=== PATIENT | female | born 1995 | race Caucasian/White ===

== ENCOUNTER 2018-05-26 19:53 | Emergency (ER) | payer OTHER, SELFPAY ==
[2018-05-26 19:54] VITALS: BP 108/85; PULSE 76; RESP 15; TEMP 36.4; O2SAT 100; BMI 24.8
--- NOTE | 2018-05-26 20:20 | RAD_ITS ---
STUDY: X-RAY - RIGHT HAND, ATTENTION THIRD FINGER REASON FOR EXAM: Female, 22 years old. Trauma TECHNIQUE: 3 view(s) of the finger were obtained. COMPARISON: None. FINDINGS: Normal metacarpal head. Normal metacarpophalangeal joint. Normal proximal phalanx. Normal middle phalanx. Normal distal phalanx. Normal proximal interphalangeal joint. Normal distal interphalangeal joint. RAD/Finger(s) Min 2 Views IMPRESSION: Normal x-ray examination of the finger. Electronically Signed: Walter Almeida MD at 20:58 EDT , Service support ,
--- NOTE | 2018-05-26 20:42 | ED.DCSUM_ITS ---
- ER Visit Summary Date of Service: 05/26/18 Chief Complaint: Right long finger injury History of Present Illness: The patient is a 22 F who got her right third finger caught in a press at work. She had acrylic nails on at the time and the acrylic nail on that finger did split. She removed it. Injury occurred 3 hours prior to arrival, and patient reports increasing pain and swelling. Physical Examination: Vital signs unremarkable. Patient sitting upright in bed no acute distress. Right upper extremity examination reveals tenderness of the tuft of the right third finger. There is a very small subungual hematoma. There is no laceration noted. She has normal sensation and cap refill distally. She has full range of motion. Test Results: Right third finger x-rays are obtained and unremarkable. Emergency Department Course and Treatment: Test results are discussed with the patient. She was placed in an AlumaFoam splint. [facility] Treatment Plan: [] Disposition: Discharge Impression: Crush injury right third finger This note was generated with [employer] dictation software. It may contain incorrect words, spelling, and punctuation that were not noted in review of the chart prior to signing ED Disposition - Plan for ED Patient: Chief Complaint: Upper Extremity Injury Referrals: Care Physician,No Primary [Primary Care Provider] -
--- NOTE | 2018-05-26 20:43 | ED.DEP ---
ED Disposition - Plan for ED Patient: Disposition: Home or Assisted Living Chief Complaint: Upper Extremity Injury Instructions: ED Crush Injury Finger No Fx Prescriptions: Naproxen [Naprosyn] 500 mg PO BID PRN PRN #20 tablet PRN Reason: Pain Referrals: Corporate,Care [GROUP OF PHYSICIANS] - 2 Days
[2018-05-26 21:22] VITALS: BP 110/72; PULSE 78; RESP 16; O2SAT 98
[2018-05-26 21:29] VITALS: BP 110/78; PULSE 78; RESP 16; O2SAT 98
== END 2018-05-26 21:33 | disposition home or self-care (01) ==
LOC: ED 20:57
PROVIDERS: Emergency Provider Emergency Medicine
DX: S67.192A Crushing injury of right middle finger, initial encounter (principal); W31.1XXA Contact with metalworking machines, initial encounter; Y93.9 Activity, unspecified; Y92.89 Other specified places as the place of occurrence of the external cause; Y99.0 Civilian activity done for income or pay
CPT/HCPCS: 73140; 99282